=== PATIENT | male | born 1965 | race Caucasian/White ===

== ENCOUNTER 2017-01-03 20:15 | Emergency (ER) | payer OTHER ==
[~2017-01-03] VITALS: Ht 162.6 cm; Wt 88.0 kg
[2017-01-03 20:22] VITALS: Ht 162.6 cm; Wt 88.0 kg
[2017-01-03] MEDS ORDERED: BELLADONNA/PHENOBARBITAL TAB PO STA (21:51)
[2017-01-03] MEDS ORDERED: SOD CHLORIDE 0.9% 500 ML IV STA (21:51)
[2017-01-03] MEDS ORDERED: LIDOCAINE/MYLANTA 40 ML BTL PO STA (21:51)
[2017-01-03] MEDS ORDERED: FAMOTIDINE 20 MG TAB PO STA (21:51)
[2017-01-03] MEDS ORDERED: KETOROLAC 15 MG INJ IV STA (21:51)
--- NOTE | 2017-01-03 22:24 | RADRPT ---
PROCEDURE: XR Chest. CLINICAL INDICATION: Chest pain. Abdominal pain TECHNIQUE: Portable AP semi-erect view of the chest was obtained. COMPARISON: None. FINDINGS: The cardiomediastinal silhouette is mildly enlarged. The lungs are clear. There is no evidence for pleural effusion, pneumothorax or pulmonary vascular congestion. The osseous structures are intact with no evidence for acute abnormality. No free air seen below the diaphragm. RPTAT:HJJR IMPRESSION: Mild cardiac silhouette enlargement without evidence for acute intrathoracic pathology. Physician Bryce Date Time Electronically viewed and signed by Physician Bryce on 01/03/2017 22:23 /
[2017-01-03 22:28] LABS: BASOPHILS % 0.7 % (0.0-2.0); EOSINOPHILS # 0.1 10^3/ul (0.0-0.5); EOSINOPHILS % 0.9 % (0.0-7.0); HEMOGLOBIN 14.7 g/dl (14.0-18.0); LYMPHOCYTES % 31.6 % (15.0-51.0); MEAN CORPUSCULAR HEMOGLOBIN 31.4 pg (29.0-33.0); MEAN CORPUSCULAR HGB CONC 34.9 g/dl (32.0-37.0); MEAN CORPUSCULAR VOLUME 90.1 fl (82.0-101.0); MEAN PLATELET VOLUME 7.2 fl (7.4-10.4); MONOCYTE # 0.6 10^3/ul (0.3-0.9); MONOCYTES % 8.9 % (0.0-11.0); NEUTROPHIL # 3.7 10^3/ul (1.6-7.5); NEUTROPHILS % 57.9 % (39.0-77.0); PLATELET COUNT 307 10^3/UL (140-440); RED BLOOD COUNT 4.66 10^6/ul (4.70-6.10); RED CELL DISTRIBUTION WIDTH 13.1 % (11.5-14.5); UNCORRECTED WBC 6.4 10^3/ul (4.8-10.8); WHITE BLOOD COUNT 6.4 10^3/ul (4.8-10.8)
[2017-01-03 22:31] LABS: ALBUMIN 4.2 g/dl (3.3-4.9); CHLORIDE 104 mmol/L (97-110); POTASSIUM 4.2 mmol/L (3.5-5.1); SODIUM 142 mmol/L (135-144)
[2017-01-03 22:33] LABS: CREATININE 0.84 mg/dl (0.61-1.24)
[2017-01-03 22:34] LABS: ALANINE AMINOTRANSFERASE 41 IU/L (13-69); ALKALINE PHOSPHATASE 129 IU/L (42-121); ANION GAP 16 (8-16); ASPARTATE AMINO TRANSFERASE 24 IU/L (15-46); BILIRUBIN,INDIRECT 0.1 mg/dl (0-1.1); BILIRUBIN,TOTAL 0.1 mg/dl (0.2-1.3); BLOOD UREA NITROGEN 22 mg/dl (7-20); CALCIUM 9.2 mg/dl (8.4-10.2); CARBON DIOXIDE 26 mmol/L (21-31); GLUCOSE 110 mg/dl (70-220); TOTAL PROTEIN 7.7 g/dl (6.1-8.1)
[2017-01-03 22:50] LABS: CONDITION 1
[2017-01-03 23:01] LABS: TROPONIN-I < 0.012 ng/ml (0.00-0.12)
[2017-01-03] MEDS ORDERED: IBUP-1542 PO (23:03)
--- NOTE | 2017-01-03 23:09 | ERD ---
ER Documentation Chief Complaint Date/Time DATE: 01/03/17 TIME: 23:08 Chief Complaint CWP x2 weeks intermittent, SOB, feels like my heart is in the throat per pt HPI 51-year-old man presents with intermittent sharp nonexertional nonradiating chest pain and palpitations. He feels the palpitations in his throat and states specifically he has had these symptoms in the past, about 1 year ago as well as about 5 years ago. Both times his symptoms have resolved spontaneously. Patient states he will be traveling to [facility] wants to make sure he has no serious underlying cardiac issue. States the palpitations occur at rest and last for a few seconds. He denies exertional chest pain or pressure , no fevers or chills, no weight loss, no shortness of breath, no headache or blurry vision. ROS All systems reviewed and are negative except as per history of present illness. Medications Home Meds Active Scripts Ibuprofen* (Ibuprofen*) 600 Mg Tablet, 600 MG PO Q8 for PAIN AND/OR INFLAMMATION , #30 TAB Prov:PADMAJA EVANS MD 01/03/17 Allergies Allergies: Coded Allergies: No Known Allergy (Unverified , 01/03/17) PMhx/Soc None Medical and Surgical Hx: pt denies Medical Hx History of Surgery: Yes (hemorrhoid sx) Anesthesia Reaction: No Hx Neurological Disorder: No Hx Respiratory Disorders: No Hx Cardiac Disorders: No Hx Psychiatric Problems: No Hx Miscellaneous Medical Probl: No Hx Alcohol Use: Yes Hx Substance Use: Yes (quit marijuana in october) Hx Tobacco Use: No Smoking Status: Never smoker FmHx Family History: No diabetes Physical Exam Vitals Vital Signs Date Time Temp Pulse Resp B/P Pulse Ox O2 Delivery O2 Flow Rate FiO2 01/04/17 00:36 97.9 64 18 111/78 100 Room Air 01/03/17 21:41 97.8 78 17 141/84 99 01/03/17 20:22 97.8 74 18 149/71 99 Physical Exam GENERAL: Well-developed, well-nourished, well-hydrated, in no apparent distress , looks nontoxic in appearance HEENT: Moist mucous membranes, pink conjunctiva, no cervical spine tenderness or step-off deformities, no goiter, no jaundice or icterus, extraocular movements intact without pain. No submandibular induration, and no pharyngeal erythema NEURO: Alert and oriented 3, cranial nerves II through XII intact bilaterally, pupils equal round reactive to light, no focal deficits or facial asymmetry, sensation intact distally Strength 5/5 in upper and lower extremities bilaterally CARDIAC: Regular rate and rhythm, no murmurs rubs or gallops LUNGS: Clear bilaterally no wheezing crackles or stridor ABDOMEN: Soft nontender, no guarding, no rigidity, no rebound, no psoas sign no obturator sign. Normoactive bowel sounds SKIN: Warm and dry to touch, no abrasions, contusions, or hematomas, no lacerations, no ecchymosis, no target lesions, and without ulcers EXTREMITIES: No clubbing cyanosis or edema, calves are bilaterally symmetrical, no Homans sign, no popliteal cord sign. Distal pulses equal and bilateral PSYCH: Normal affect without agitation or irritability Result Diagram: 01/03/17213201/03/172132 Results 24 hrs Laboratory Tests Test 01/03/17 21:33 Alanine Aminotransferase (ALT/SGPT) 41IU/L Albumin 4.2g/dl Albumin/Globulin Ratio 1.20 Alkaline Phosphatase 129IU/L Anion Gap 16 Aspartate Amino Transf (AST/SGOT) 24IU/L Basophils # 0.010^3/ul Basophils % 0.7% Blood Morphology Comment Blood Urea Nitrogen 22mg/dl Calcium Level 9.2mg/dl Carbon Dioxide Level 26mmol/L Chloride Level 104mmol/L Creatinine 0.84mg/dl Direct Bilirubin 0.00mg/dl Eosinophils # 0.110^3/ul Eosinophils % 0.9% Globulin 3.50g/dl Glucose Level 110mg/dl Hematocrit 42.0% Hemoglobin 14.7g/dl Indirect Bilirubin 0.1mg/dl Lipase 77U/L Lymphocytes # 2.010^3/ul Lymphocytes % 31.6% Mean Corpuscular Hemoglobin 31.4pg Mean Corpuscular Hemoglobin Concent 34.9g/dl Mean Corpuscular Volume 90.1fl Mean Platelet Volume 7.2fl Monocytes # 0.610^3/ul Monocytes % 8.9% Neutrophils # 3.710^3/ul Neutrophils % 57.9% Nucleated Red Blood Cells # 0.010^3/ul Nucleated Red Blood Cells % 0.0/100WBC Platelet Count 22490^3/UL Potassium Level 4.2mmol/L Red Blood Count 4.6610^6/ul Red Cell Distribution Width 13.1% Sodium Level 142mmol/L Total Bilirubin 0.1mg/dl Total Protein 7.7g/dl Troponin I < 0.012ng/ml White Blood Count 6.410^3/ul Current Medications Medications (Trade) Dose Ordered Sig/Marylou Route PRN Reason Start Time Stop Time Status Last Admin Dose Admin Sodium Chloride (NS) 500 ml @ 500 mls/hr Q1H STAT IV 01/03/17 21:51 01/03/17 22:50 DC 01/03/17 22:41 Famotidine (Pepcid) 20 mg ONCE STAT PO 01/03/17 21:51 01/03/17 21:52 DC 01/03/17 22:07 Miscellaneous Medication (Gi Cocktail (2)) 40 ml ONCE STAT PO 01/03/17 21:51 01/03/17 21:52 DC 01/03/17 22:06 Belladonna/ Phenobarbital () 2 tab ONCE STAT PO 01/03/17 21:51 01/03/17 21:52 DC 01/03/17 22:07 Ketorolac Tromethamine (Toradol) 15 mg ONCE STAT IV 01/03/17 21:51 01/03/17 21:52 DC 01/03/17 22:07 Procedures/MDM IV line was established patient was placed on cashier supervisor rhythm strip revealed a sinus rhythm at about 80 bpm with upright P and T waves. Patient was afebrile. EKG performed, read by me: 80 bpm, normal sinus rhythm, normal axis, no acute ST segment changes, narrow QRS complex, with good R-wave progression in precordial leads. Chest X-ray 1V Interpreted by me: Soft Tissue: No acute abnormalities Bones: No acute abnormalities Mediastinum/Cardiac Silhouette/Lungs: No acute abnormalities I administered 500 cc of normal saline intravenously, Toradol 50 mg IV, GI cocktail 50 cc p.o., famotidine 20 mg p.o. all with good response. CBC was unremarkable, electrolytes revealed mild dehydration with a BUN/ creatinine of 22/0.8, liver function tests were normal, troponin was negative. Patient experienced about a 2 second episode of palpitations which correlated with a PVC on cashier supervisor. Although he had no consistent runs a PVC or other rhythm/EKG abnormality. Patient appears healthy and can follow-up with his PMD for continued outpatient management. I did tell him if his symptoms continue or worsen he may require a 24 hour Holter monitor. I also told him that I cannot completely "clear" him for long distance travel as this is difficult to do from the emergency department and may require further in-depth workup may require the input from his floral specialist and even multiple specialists. Although generally speaking he is low risk for any serious underlying cardiopulmonary etiology, and is generally healthy. I told him he has about as much risk as any other man his age when it comes to long distance plane travel. Differential diagnoses considered, included but not limited to acute coronary syndrome, infective endocarditis, pulmonary embolism, aortic dissection, abdominal aortic aneurysm, sepsis, stroke, meningitis, encephalitis, pneumonia, appendicitis, cholecystitis, bowel obstruction, pyelonephritis, nephrolithiasis , cystitis, as well as metabolic, hematologic, and electrolyte abnormalities. As well as abscess, cellulitis, fractures, and dislocations. Patient feels much better at this time, and vital signs are normal, symptoms have improved. I did give strict instructions to return to the ED if symptoms continue or worsen, patient will otherwise follow-up with primary care physician. Patient understood instructions and agreed to plan. Departure Diagnosis: Primary Impression: Chest pain Chest pain type: unspecified Qualified Code: R07.9 - Chest pain, unspecified type Additional Impressions: Palpitations PVC (premature ventricular contraction) Condition: Good Patient Instructions: Chest Pain, Uncertain Cause, Palpitations PADMAJA EVANS MD Jan 03, 2017 23:09
[2017-01-04 00:36] VITALS: BP 111/78; PULSE 64; RESP 18; TEMP 97.9
== END 2017-01-04 00:36 | disposition home or self-care (01) ==
LOC: E/R 20:15
DX: R07.89 Other chest pain (principal); I49.3 Ventricular premature depolarization; R40.2142 Coma scale, eyes open, spontaneous, at arrival to emergency department; R40.2252 Coma scale, best verbal response, oriented, at arrival to emergency department; R40.2362 Coma scale, best motor response, obeys commands, at arrival to emergency department
CPT/HCPCS: 36415; 71010; 80053; 83690; 84484; 85025; 93005; 96361; 96374; 99285; J1885; J7040